=== PATIENT | male | born 1995 | race Caucasian/White ===

== ENCOUNTER 2023-07-30 21:20 | Emergency (ER) | payer OTHER, SELFPAY ==
[2023-07-30] VITALS (20 sets, daily range): BP systolic 114–148; BP diastolic 61–104; BMI 22.8
[2023-07-30] MEDS: ZOFRAN 4 MG IV (22:02)
[2023-07-30] MEDS: DILAUDID 0.5 MG IV (22:03)
--- NOTE | 2023-07-30 22:15 | ED.GENMED ---
History of Present Illness
General
Chief Complaint: Musculo-Skeletal Complaint
Source: patient
Exam Limitations: none
Time Seen by Provider: 07/30/23 21:27
Nursing documentation reviewed up to this point in time: agreed with
Travel History
Have you had any contact with someone who has COVID-19?: No
Do you have any symptoms of coronavirus? Fever > 100 degrees, chills, cough, shortness of breath, sore throat, loss of taste or smell, muscle aches, or headache?: No
History of Present Illness
History of Present Illness:
Patient is a 27-year-old [id number] male who presents to the emergency department complaining of right wrist pain after falling backwards on an outstretched right hand. Patient noticed deformity of the wrist. Patient denies any other
injuries. Patient denies any numbness or paresthesias.
Past History
Past History
ED Past Medical History: None
Social History
Tobacco: Non-smoker
Review of Systems
Review of Systems
All Other Systems: Not applicable
Phy Exam
Physical Exam
Physical Exam:
Physical Exam
General: mild to moderate distress, alert and appropriate, well nourished, well hydrated
HENT: Normocephalic and atraumatic, supple with no tenderness
Eyes: Clear sclera, conjuctiva without injection
Heart: Regular rhythm and rate. No S3, S4. No murmur. No NVD
Lungs: No respiratory distress, no stridor, lung sounds clear and equal bilaterally, chest wall symmetrical and nontender
Abdomen: Soft, nontender
Neuro: Alert and oriented x 3, CN II - XII intact, no motor focality, no cerebellar dysfunction
Skin: no wounds
Psychiatric: well kept. interactive and cooperative
Extremities: No edema, cyanosis. Positive tenderness with mild deformity of the right wrist on the radial aspect. Neurovascularly tendons intact. No tenderness of the shoulder or elbow
Course
Orders/Labs/Results
Orders:
Orders
07/30/23 21:48
Forearm, Right 2 View [CR Forearm - Right 2 View] Urgent
Comment:
Reason For Exam: fall
07/30/23 21:49
HYDROmorphone [Dilaudid] 0.5 mg IV NOW STA
Ondansetron Injectable [Zofran] 4 mg IV NOW STA
07/30/23 22:33
Propofol [Diprivan] 20 ml .ROUTE .STK-MED
07/30/23 23:01
Wrist, Right 2 Views CR [CR Wrist - Right Min 2 Views] Urgent
Comment:
Reason For Exam: post reduction
Vital Signs
Initial and Last Documented VS:
Initial Vital Signs
Temp Pulse Resp BP Pulse Ox
98.8 F 78 18 148/94 96
07/30/23 21:22 07/30/23 21:22 07/30/23 21:22 07/30/23 21:22 07/30/23 21:22
Last Documented Vital Signs
Temp Pulse Resp BP Pulse Ox
98.0 F 79 14 116/83 97
07/30/23 22:58 07/30/23 23:08 07/30/23 23:08 07/30/23 23:08 07/30/23 23:08
Procedures
Moderate Sedation
ASA Risk Score: Class I
Chart and allergies reviewed: Yes
Consent for anesthesia obtained: Yes
Time out completed (validating right patient & procedure): Yes
History of difficult intubation: No
Airway free of obstruction: Yes
Patient has a gag reflex: Yes
Patient is able to open mouth: Yes
Patient has no dentures: Yes
Patient has no loose teeth: Yes
Medication administered by Provider during Moderate Sedation: IV Propofol (mg)
Total dose administered: 150
Time drug administered: 22:59
Start Time: 22:58
Stop Time: 23:09
Splinting/Sling Placement
Right Wrist:
Procedure completed by: christopher
Pre-splint extermity exam: good alignment
Type of splint: sugar-tong
Splint material: fiberglass
Splint checked by provider?: Yes
Type of sling: sling fitted
Normal distal neurovascular exam?: Yes
Joint/Fracture Reduction
Right Wrist:
Indication for procedure:: Displaced fracture of the distal radius
Procedure completed by: christopher
Consent form signed: Yes
Joint reduced: with anesthesia sedation
Anesthesia/sedation: Moderate sedation
Injury was: closed
Further treatement: needs re-check only
Post reduction exam: stable
Capillary Refill: normal
Normal distal neurovascular exam?: Yes
*Radiology
Radiology exam reviewed: preliminary read by ED provider (Distal right radius fracture with displacement)
*Pulse Oximetry
Patient hypoxic: no
*EKG
Interpreted by ED Provider?: NA
*Critical Care Note
Total Time (30-74mins, 75-104mins- exclusive of procedures): Not Applicable
ED Attending Note
-
Portions of this chart may have been created with voice recognition software.� Occasional wrong word or��sound alike� substitutions may have occurred due to the inherent limitations of voice recognition software.
Discharge Plan
Departure
Patient Disposition: Home (Routine Discharge)
Date of Disposition: 07/30/23
Time of Disposition: 23:13
Patient with high blood pressure during this ER visit?: No
Condition: Good
Covid-19: Not Applicable
Discharge Problem:
Closed right radial fracture
Instructions: Wrist Fracture (DC), How to Use a Shoulder Sling, Using Cold for Pain, Splint Care, MODERATE SEDATION ADULT
Prescriptions:
New
oxycodone 5 mg tablet
5 mg PO Q4H PRN (Reason: Pain) Qty: 12 0RF
No Action
montelukast 10 MG tablet
10 mg PO QPM
Referrals:
Porfirio May MD [Family Provider] -
Roland Prater MD [Active] - Call in 1-3 days for appt
Interventions
Interventions:
*Risk Screen - Suicide Last Done: 07/30/23 21:22
*General Assessment Last Done: 07/30/23 21:22
*Neglect/Abuse Screening Last Done: 07/30/23 21:26
ED- Fall Risk Assessment Last Done: 07/30/23 21:22
*ED COVID-19 Vaccine History Last Done: 07/30/23 21:22
ED-Musculoskeletal Assessment Last Done: 07/30/23 22:15
--- NOTE | 2023-07-30 23:21 | ED.MUSCINJ ---
HPI-Injury
General
Chief Complaint: Musculo-Skeletal Complaint
Source: patient
Exam Limitations: none
Time Seen by Provider: 07/30/23 21:27
Nursing documentation reviewed up to this point in time: agreed with
Travel History
Have you had any contact with someone who has COVID-19?: No
Do you have any symptoms of coronavirus? Fever > 100 degrees, chills, cough, shortness of breath, sore throat, loss of taste or smell, muscle aches, or headache?: No
History of Present Illness-Injury
Is this injury a work related problem?: No
Is pt an associate of [facility]?: No
Initial Injury comments:
Fell while skiing. Denies hitting his head. Complains of pain to his right forearm,. Injury occurred just [employer]
Past History
Past History
ED Past Medical History: None
ED Past Surgical History: None
Social History
Tobacco: Non-smoker
Review of Systems
Review of Systems
Allergies reviewed?: Yes
All Other Systems: ROS reviewed and negative except as documented in HPI and ROS
Constitutional: Reports no symptoms
EENT: Reports no symptoms
Respiratory: Reports no symptoms
Cardiac: Reports no symptoms
ABD/GI: Reports no symptoms
Musculoskeletal: Reports joint pain (Pain to right wrist.)
Skin: Reports no symptoms
Neurological: Reports no symptoms
Psychiatric: Reports no symptoms
Musculoskeletal Injury Exam
Musculoskeletal Injury Exam
Right Wrist:
Pain with Movement?: Moderate
Tender to palpation?: Moderate
Soft tissue swelling?: Moderate
External deformity and angulation?: Mild
Joint effusion?: None
Contusion?: Moderate
Hematoma-local bleeding into tissue?: None
Strain- Sprain- Tear (Connective tissue injury)?: Moderate
Crepitus with movement?: No
Joint instability?: No
Malalignment/deformity?: Yes
Range of motion: Limited
Distal skin color and temperature: normal-warm & good color
Capillary Refill: normal
Normal distal neurovascular exam?: Yes
Peripheral Pulses: radial (right): 3+
Phy Exam
General Physical Exam
General Presentation: well appearing and mild distress
General age: appears stated age
General Skin: warm and dry
General Habitus: normal
General Mental: alert
General Hydration: appears well hydrated
Musculoskeletal Exam
Musculoskeletal Exam: neuro vasc intact
Skin Exam
Skin Exam: normal color, warm/dry and no rash
Psychiatric Exam
Psychiatric Exam: normal mood/affect
Injury Course
Orders/Labs/Results
Orders:
Orders
07/30/23 21:48
Forearm, Right 2 View [CR Forearm - Right 2 View] Urgent
Comment:
Reason For Exam: fall
07/30/23 21:49
HYDROmorphone [Dilaudid] 0.5 mg IV NOW STA
Ondansetron Injectable [Zofran] 4 mg IV NOW STA
07/30/23 22:33
Propofol [Diprivan] 20 ml .ROUTE .STK-MED
07/30/23 23:01
Wrist, Right 2 Views CR [CR Wrist - Right Min 2 Views] Urgent
Comment:
Reason For Exam: post reduction
*Radiology
Radiology exam reviewed: radiology read reviewed
*Pulse Oximetry
Patient hypoxic: no
*Critical Care Note
Total Time (30-74mins, 75-104mins- exclusive of procedures): Not Applicable
Update Note
Update Note:
Moderate Sedation with Propafol 150mcg by Dr. Lawrence. Closed reduction performed bedside and he was placed in a sugar-tong sling. Will discharge home and he will follow up with orthopedics this week.
ED Attending Note
-
Portions of this chart may have been created with voice recognition software.� Occasional wrong word or��sound alike� substitutions may have occurred due to the inherent limitations of voice recognition software.
Discharge Plan
Departure
Patient Disposition: Home (Routine Discharge)
Date of Disposition: 07/30/23
Time of Disposition: 23:13
Patient with high blood pressure during this ER visit?: No
Condition: Good
Covid-19: Not Applicable
Discharge Problem:
Closed right radial fracture
Instructions: Wrist Fracture (DC), How to Use a Shoulder Sling, Using Cold for Pain, Splint Care, MODERATE SEDATION ADULT
Prescriptions:
New
oxycodone 5 mg tablet
5 mg PO Q4H PRN (Reason: Pain) Qty: 12 0RF
No Action
montelukast 10 MG tablet
10 mg PO QPM
Referrals:
Porfirio May MD [Family Provider] -
Roland Prater MD [Active] - Call in 1-3 days for appt
Interventions
Interventions:
*Risk Screen - Suicide Last Done: 07/30/23 21:22
*General Assessment Last Done: 07/30/23 21:22
*Neglect/Abuse Screening Last Done: 07/30/23 21:26
ED- Fall Risk Assessment Last Done: 07/30/23 21:22
*ED COVID-19 Vaccine History Last Done: 07/30/23 21:22
ED-Musculoskeletal Assessment Last Done: 07/30/23 22:15
[2023-07-31 00:01] VITALS: BP 124/72
[2023-07-31 00:05] VITALS: BP 119/65
[2023-07-31 00:10] VITALS: BP 117/72
[2023-07-31 23:15] VITALS: BP 119/68
[2023-07-31 23:30] VITALS: BP 121/69
[2023-08-28 03:57] VITALS: BP 121/69
== END 2023-07-31 00:38 | disposition home or self-care (01) ==
LOC: EMR 21:20
PROVIDERS: EMERGENCY PHYSICIAN Emergency Medicine; FAMILY PHYSICIAN Family Medicine
DX: S52.501A Unspecified fracture of the lower end of right radius, initial encounter for closed fracture (principal); W00.0XXA Fall on same level due to ice and snow, initial encounter; Y93.23 Activity, snow (alpine) (downhill) skiing, snowboarding, sledding, tobogganing and snow tubing
CPT/HCPCS: 99283; 25605; 99152; 96374; 96375; 73090; 73100

== ENCOUNTER 2023-08-02 06:20 | Day surgery (SDC) | payer OTHER, SELFPAY ==
[2023-08-02] VITALS (7 sets, daily range): BP systolic 117–146; BP diastolic 75–93; BMI 21.1
[2023-08-02] MEDS: NORMOSOL-R 1000 IV (14:12)
[2023-08-02] MEDS: DILAUDID 0.5 MG IV (17:25)
[2023-08-02] MEDS: DILAUDID IV (17:35)
[2023-08-02] MEDS: DILAUDID 0.25 MG IV (17:38)
== END 2023-08-02 18:45 | disposition home or self-care (01) ==
LOC: SDS 06:20
PROVIDERS: ATTENDING PHYSICIAN Orthopaedic Surgery
DX: S52.571A Other intraarticular fracture of lower end of right radius, initial encounter for closed fracture (principal); V00.321A Fall from snow-skis, initial encounter; Y93.23 Activity, snow (alpine) (downhill) skiing, snowboarding, sledding, tobogganing and snow tubing; Y92.838 Other recreation area as the place of occurrence of the external cause
CPT/HCPCS: 25608; 73110; 76000; C1713